=== PATIENT | female | born 1950 | race American Indian/Alaskan Native ===

== ENCOUNTER 2017-07-09 21:55 | Inpatient (IN) | payer MEDICARE ==
--- NOTE | 2017-07-09 22:57 | Emergency Department Report ---
ED General Adult HPI - General Chief complaint: Abdominal Pain Stated complaint: CP,ABD PAIN Time Seen by Provider: 07/09/17 22:43 Source: patient Mode of arrival: Ambulatory Limitations: No Limitations - History of Present Illness Initial comments: Pt is a 67-year-old female past history of hypertension diabetes who presents with chest pain. Patient states the chest pain occurred a couple of hours ago. Patient states that she was eating and then afterwards she had some chest pain. She states that the chest pain was severe listening about 8/10 and that she felt nauseous with this pain. Patient was diaphoretic 2 and the pain was constant. Patient states that she's never had this type of pain before it is a pressure type of pain . It radiated to her right shoulder. Nothing makes the pain better or worse. Patient was brought on by EMS. - Related Data Allergies Allergy/AdvReac Type Severity Reaction Status Date / Time aspirin Allergy Unknown Verified 07/09/17 22:31 ED Review of Systems ROS: Stated complaint: CP,ABD PAIN Other details as noted in HPI Constitutional: denies: chills, fever Eyes: denies: eye pain, eye discharge, vision change ENT: denies: ear pain, throat pain Respiratory: denies: cough, shortness of breath, wheezing Cardiovascular: chest pain Endocrine: no symptoms reported Gastrointestinal: abdominal pain, nausea Genitourinary: denies: urgency, dysuria, discharge Musculoskeletal: denies: back pain, joint swelling, arthralgia Skin: denies: rash, lesions Neurological: denies: headache, weakness, paresthesias Psychiatric: denies: anxiety, depression Hematological/Lymphatic: denies: easy bleeding, easy bruising ED Past Medical Hx - Past Medical History Previous Medical History?: Yes Hx Hypertension: Yes Hx Diabetes: Yes Additional medical history: h/o pancreatitis, chronic back pain - Surgical History Past Surgical History?: Yes Hx Cholecystectomy: Yes - Social History Smoking Status: Never Smoker Substance Use Type: None ED Physical Exam - General Limitations: No Limitations General appearance: alert, in no apparent distress - Head Head exam: Present: atraumatic, normocephalic - Eye Eye exam: Present: normal appearance - ENT ENT exam: Present: mucous membranes moist - Neck Neck exam: Present: normal inspection - Respiratory Respiratory exam: Present: normal lung sounds bilaterally. Absent: respiratory distress - Cardiovascular Cardiovascular Exam: Present: regular rate, normal rhythm. Absent: systolic murmur, diastolic murmur, rubs, gallop - GI/Abdominal GI/Abdominal exam: Present: soft, normal bowel sounds - Extremities Exam Extremities exam: Present: normal inspection - Back Exam Back exam: Present: normal inspection - Neurological Exam Neurological exam: Present: alert, oriented X3 - Psychiatric Psychiatric exam: Present: normal affect, normal mood - Skin Skin exam: Present: warm, dry, intact, normal color. Absent: rash ED Course Vital Signs 07/09/17 07/09/17 07/09/17 22:27 22:30 22:31 Temperature 97.9 F Pulse Rate 56 L Respiratory 18 Rate Blood Pressure 186/70 O2 Sat by Pulse 96 96 100 Oximetry 07/09/17 07/09/17 07/09/17 22:46 23:00 23:16 Temperature Pulse Rate 53 L 53 L 54 L Respiratory 12 15 19 Rate Blood Pressure O2 Sat by Pulse 99 98 98 Oximetry 07/09/17 07/09/17 07/10/17 23:30 23:46 00:00 Temperature Pulse Rate 53 L 54 L 53 L Respiratory 15 12 13 Rate Blood Pressure O2 Sat by Pulse 97 99 98 Oximetry 07/10/17 07/10/17 07/10/17 00:16 00:30 00:46 Temperature Pulse Rate 52 L 54 L 52 L Respiratory 12 13 19 Rate Blood Pressure O2 Sat by Pulse 99 100 98 Oximetry 07/10/17 07/10/17 07/10/17 01:25 01:30 01:46 Temperature Pulse Rate 71 54 L 45 L Respiratory 17 18 17 Rate Blood Pressure 175/78 175/78 O2 Sat by Pulse Oximetry 07/10/17 07/10/17 07/10/17 02:00 02:16 02:30 Temperature Pulse Rate 55 L 50 L 47 L Respiratory 14 13 18 Rate Blood Pressure 188/70 188/70 188/70 O2 Sat by Pulse Oximetry 07/10/17 07/10/17 07/10/17 02:46 03:00 03:16 Temperature Pulse Rate 56 L 53 L 47 L Respiratory 18 11 L 15 Rate Blood Pressure 188/70 164/130 164/130 O2 Sat by Pulse 95 95 94 Oximetry 07/10/17 07/10/17 07/10/17 03:30 03:46 04:10 Temperature Pulse Rate 51 L 49 L 58 L Respiratory 11 L 16 15 Rate Blood Pressure 164/130 164/130 164/130 O2 Sat by Pulse 97 96 95 Oximetry 07/10/17 07/10/17 04:16 04:20 Temperature Pulse Rate 49 L Respiratory 16 18 Rate Blood Pressure 156/57 O2 Sat by Pulse 92 Oximetry ED Medical Decision Making - Lab Data Result diagrams: 07/09/17 23:05 07/09/17 23:05 Lab Results 07/09/17 07/09/17 07/10/17 Range/Units 23:05 23:05 00:30 WBC 6.8 (4.5-11.0) K/mm3 RBC 5.33 H (3.65-5.03) M/mm3 Hgb 15.6 H (10.1-14.3) gm/dl Hct 48.6 H (30.3-42.9) % MCV 91 (79-97) fl MCH 29 (28-32) pg MCHC 32 (30-34) % RDW 14.9 (13.2-15.2) % Plt Count 212 (140-440) K/mm3 Lymph % (Auto) 29.5 (13.4-35.0) % [place] % (Auto) 10.5 H (0.0-7.3) % Eos % (Auto) 2.1 (0.0-4.3) % Baso % (Auto) 0.5 (0.0-1.8) % Lymph # 2.0 (1.2-5.4) K/mm3 [place] # 0.7 (0.0-0.8) K/mm3 Eos # 0.1 (0.0-0.4) K/mm3 Baso # 0.0 (0.0-0.1) K/mm3 Seg Neutrophils % 57.4 (40.0-70.0) % Seg Neutrophils # 3.9 (1.8-7.7) K/mm3 Sodium 140 (137-145) mmol/L Potassium 4.1 (3.6-5.0) mmol/L Chloride 102.0 (98-107) mmol/L Carbon Dioxide 20 L (22-30) mmol/L Anion Gap 22 mmol/L BUN 14 (7-17) mg/dL Creatinine 1.0 (0.7-1.2) mg/dL Estimated GFR > 60 ml/min BUN/Creatinine Ratio 14 % Glucose 163 H (65-100) mg/dL Calcium 9.5 (8.4-10.2) mg/dL Total Bilirubin 0.40 (0.1-1.2) mg/dL AST 75 H (5-40) units/L ALT 56 (7-56) units/L Alkaline Phosphatase 105 (35-129) units/L Troponin T < 0.010 < 0.010 (0.00-0.029) ng/mL NT-Pro-B Natriuret Pep (0-900) pg/mL Total Protein 8.1 (6.3-8.2) g/dL Albumin 3.9 (3.9-5) g/dL Albumin/Globulin Ratio 0.9 % Lipase 47 (13-60) units/L Urine Color (Yellow) Urine Turbidity (Clear) Urine pH (5.0-7.0) Ur Specific [place] (1.003-1.030) Urine Protein (Negative) mg/dL Urine Glucose (UA) (Negative) mg/dL Urine Ketones (Negative) mg/dL Urine Blood (Negative) Urine Nitrite (Negative) Urine Bilirubin (Negative) Urine Urobilinogen (<2.0) mg/dL Ur Leukocyte Esterase (Negative) Urine WBC (Auto) (0.0-6.0) /HPF Urine RBC (Auto) (0.0-6.0) /HPF U Epithel Cells (Auto) (0-13.0) /HPF Urine Mucus /HPF 07/10/17 07/10/17 Range/Units 00:30 03:18 WBC (4.5-11.0) K/mm3 RBC (3.65-5.03) M/mm3 Hgb (10.1-14.3) gm/dl Hct (30.3-42.9) % MCV (79-97) fl MCH (28-32) pg MCHC (30-34) % RDW (13.2-15.2) % Plt Count (140-440) K/mm3 Lymph % (Auto) (13.4-35.0) % [place] % (Auto) (0.0-7.3) % Eos % (Auto) (0.0-4.3) % Baso % (Auto) (0.0-1.8) % Lymph # (1.2-5.4) K/mm3 [place] # (0.0-0.8) K/mm3 Eos # (0.0-0.4) K/mm3 Baso # (0.0-0.1) K/mm3 Seg Neutrophils % (40.0-70.0) % Seg Neutrophils # (1.8-7.7) K/mm3 Sodium (137-145) mmol/L Potassium (3.6-5.0) mmol/L Chloride (98-107) mmol/L Carbon Dioxide (22-30) mmol/L Anion Gap mmol/L BUN (7-17) mg/dL Creatinine (0.7-1.2) mg/dL Estimated GFR ml/min BUN/Creatinine Ratio % Glucose (65-100) mg/dL Calcium (8.4-10.2) mg/dL Total Bilirubin (0.1-1.2) mg/dL AST (5-40) units/L ALT (7-56) units/L Alkaline Phosphatase (35-129) units/L Troponin T (0.00-0.029) ng/mL NT-Pro-B Natriuret Pep 44.77 (0-900) pg/mL Total Protein (6.3-8.2) g/dL Albumin (3.9-5) g/dL Albumin/Globulin Ratio % Lipase (13-60) units/L Urine Color Yellow (Yellow) Urine Turbidity Clear (Clear) Urine pH 5.0 (5.0-7.0) Ur Specific [place] 1.024 (1.003-1.030) Urine Protein <15 mg/dl (Negative) mg/dL Urine Glucose (UA) >=500 (Negative) mg/dL Urine Ketones Neg (Negative) mg/dL Urine Blood Sm (Negative) Urine Nitrite Neg (Negative) Urine Bilirubin Neg (Negative) Urine Urobilinogen < 2.0 (<2.0) mg/dL Ur Leukocyte Esterase Neg (Negative) Urine WBC (Auto) 1.0 (0.0-6.0) /HPF Urine RBC (Auto) 1.0 (0.0-6.0) /HPF U Epithel Cells (Auto) < 1.0 (0-13.0) /HPF Urine Mucus Few /HPF - EKG Data -: EKG Interpreted by Me - EKG Data 07/09/17 22:57 EKG shows normal sinus rhythm no ST segment elevation or T-wave inversion. - Radiology Data Radiology results: image reviewed Chest x-ray: Shows mild cardiomegaly - Medical Decision Making Chief medical diagnosis: Non-STEMI Differential medical diagnosis: Pneumonia, pneumothorax, GERD, arrhythmia, metabolic abnormality I will get CBC, CMP, EKG, troponin, chest x-ray, IV pain medication Patient will be admitted to the hospital service due to patient having high risk factors for acute coronary syndrome. Discussed plan with patient. She agrees with plan. Critical care attestation.: If time is entered above; I have spent that time in minutes in the direct care of this critically ill patient, excluding procedure time. ED Disposition Clinical Impression: Acute coronary syndrome Chest pain Qualifiers: Chest pain type: other chest pain Qualified Code(s): R07.89 - Other chest pain ; R07.8 - Other chest pain Disposition: OP ADMIT IP TO THIS HOSP Is pt being admited?: Yes Does the pt Need Aspirin: No Condition: Stable Instructions: Abdominal Pain (ED), Chest Pain (ED) Referrals: PRIMARY CARE, [Primary Care Provider] - 3-5 Days
[2017-07-09] MEDS ORDERED: MORPHINE IV ONE (22:58)
[2017-07-09 23:40] LABS: Basophils % (Auto) 0.5 % (0.0-1.8); Eosinophils % (Auto) 2.1 % (0.0-4.3); Hematocrit 48.6 % (30.3-42.9); Hemoglobin 15.6 gm/dl (10.1-14.3); Mean Corpuscular HGB Conc 32 % (30-34); Mean Corpuscular Hemoglobin 29 pg (28-32); Mean Corpuscular Volume 91 fl (79-97); Platelet Count 212 K/mm3 (140-440); Red Blood Count 5.33 M/mm3 (3.65-5.03); Red Cell Distribution Width 14.9 % (13.2-15.2); White Blood Count 6.8 K/mm3 (4.5-11.0)
[2017-07-09 23:48] LABS: Albumin 3.9 g/dL (3.9-5); Albumin/Globulin Ratio 0.9 %; Alkaline Phosphatase 105 units/L (35-129); Anion Gap 22 mmol/L; BUN/Creatinine Ratio 14; Blood Urea Nitrogen 14 mg/dL (7-17); Calcium 9.5 mg/dL (8.4-10.2); Carbon Dioxide 20 mmol/L (22-30); Glucose 163 mg/dL (65-100); Lipase 47 units/L (13-60); Potassium 4.1 mmol/L (3.6-5.0); Sodium 140 mmol/L (137-145); Total Protein 8.1 g/dL (6.3-8.2)
[2017-07-10 00:08] LABS: Alanine Aminotransferase 56 units/L (7-56)
[2017-07-10] MEDS ORDERED: MORPHINE ONE (03:45)
[2017-07-10 03:50] LABS: Bilirubin,Urine NEG (Negative); Blood,Urine SM (Negative); Ketones,Urine NEG (Negative); Leukocyte Esterase,Urine NEG (Negative); Mucus,Urine FEW /HPF; Nitrite,Urine NEG (Negative); Protein,Urine <15 mg/dL mg/dL (Negative); Urobilinogen,Urine < 2.0 mg/dL (<2.0)
[2017-07-10] MEDS ORDERED: D50W (25GM) Syringe IV PRN (05:19)
[2017-07-10] MEDS ORDERED: DULCOLAX PR PRN (05:19)
[2017-07-10] MEDS ORDERED: MILK OF MAGNESIA PO PRN (05:19)
[2017-07-10] MEDS ORDERED: TYLENOL PO PRN (05:19)
[2017-07-10] MEDS ORDERED: SODIUM CHLORIDE FLUSH SYRINGE 10 ML IV PRN (05:19)
[2017-07-10] MEDS ORDERED: APRESOLINE IV PRN (05:24)
--- NOTE | 2017-07-10 05:24 | History and Physical Report ---
History of Present Illness Date of examination: 07/10/17 History of present illness: 67-year-old woman with a history of hypertension, diabetes, hypothyroidism comes emergency room with complaints of chest pain. Pain is in the epigastric area and in the anterior neck which started last night, described as a hurting sensation, constant, intensity 6/10, no radiation radiation and she cannot identify exacerbating or relieving factors. Admits to nausea and vomiting, shortness breath, diaphoresis Review Of Systems: Constitutional: no weight loss Ears, eyes, nose, mouth and throat: no nasal congestion, no nasal discharge, no sinus pressure, blurry vision, diplopia Neck: No neck pain or rigidity. Cardiovascular: no orthopnea, palpitations Respiratory: No cough Gastrointestinal: abdominal pain, hematochezia Genitourinary : no dysuria, frequency , hematuria Musculoskeletal: no muscle ache Integumentary: no rash, no pruritis Neurological: no parathesias, focal weakness Endocrine: no cold or heat intolerance, no polyuria or polydipsia Hematologic/Lymphatic: no easy bruising, no easy bleeding, no gland swelling Allergic/Immunologic: no urticaria, no angioedema. PAST MEDICAL HISTORY:hypertension, diabetes, hypothyroidism PAST SURGICAL HISTORY: Cholecystectomy, thyroidectomy FAMILY HISTORY::hypertension SOCIAL HISTORY: Denies alcohol, tobacco, drugs Medications and Allergies Allergies Allergy/AdvReac Type Severity Reaction Status Date / Time aspirin Allergy Unknown Verified 07/09/17 22:31 Home Medications Medication Instructions Recorded Confirmed Last Taken Type Amlodipine Besylate [Amlodipine 10 mg PO DAILY 07/10/17 07/10/17 07/09/17 History Besylate] Chlorthalidone [Chlorthalidone] 25 mg PO DAILY 07/10/17 07/10/17 07/09/17 History Dapagliflozin Propanediol [Farxiga] 10 mg PO DAILY 07/10/17 07/10/17 07/09/17 History Diclofenac EC 75 mg PO DAILY 07/10/17 07/10/17 07/06/17 History Insulin Aspart [NovoLOG Flexpen] 1 unit SQ AC 07/10/17 07/10/17 07/09/17 History Levothyroxine [Synthroid] 112 mcg PO QAM 07/10/17 07/10/17 07/09/17 History 112 mcg Metoprolol [Lopressor] 100 mg PO ONCE 07/10/17 07/10/17 07/09/17 History Oxycodone HCl/Acetaminophen 10 mg PO Q6HR PRN 07/10/17 07/10/17 07/09/17 History [Oxycodone-Acetaminophen 5-325] Rosuvastatin Calcium [Crestor] 20 mg PO DAILY 07/10/17 07/10/17 07/09/17 History Active Meds: Active Medications Acetaminophen (Tylenol) 650 mg PO Q4H PRN PRN Reason: Pain MILD(1-3)/Fever >100.5/ROBERSON Bisacodyl (Dulcolax) 10 mg [place] QDAY PRN PRN Reason: Constipation unrelieved by MOM Dextrose (D50w (25gm) Syringe) 50 ml IV PRN PRN PRN Reason: Hypoglycemia Enoxaparin Sodium (Lovenox) 40 mg SUB-Q QDAY BRENDA Insulin Aspart (Novolog) 0 units SUB-Q ACHS BRENDA PRN Reason: Protocol Magnesium Hydroxide (Milk Of Magnesia) 30 ml PO Q4H PRN PRN Reason: Constipation Morphine Sulfate (Morphine) 2 mg IV Q4H PRN PRN Reason: Pain, Moderate (4-6) Ondansetron HCl (Zofran) 4 mg IV Q8H PRN PRN Reason: N/V unrelieved by Reglan Sodium Chloride (Sodium Chloride Flush Syringe 10 Ml) 10 ml IV PRN PRN PRN Reason: LINE FLUSH Exam - Physical Exam Narrative exam: Gen. appearance: Patient lying in bed in no acute distress HEENT: Normocephalic/atraumatic, pupils equal round reactive to light, extra alkaline movement intact, no scleral icterus, no JVD or thyromegaly or nodule, neck is supple, mucous membrane moist, no erythema or exudate Heart: S1-S2, regular rate and rhythm Lungs: Clear to auscultation bilateral breathing comfortable Abdomen: Positive bowel sounds, nontender, nondistended, no organomegaly Extremities: No edema, cyanosis, clubbing Neuro:: Oriented 3 , cranial nerves II-12 intact, speech, motor intact Skin: No rash, nodules, warm dry - Constitutional Vitals: Temp Pulse Resp BP Pulse Ox 97.9 F 49 L 18 156/57 92 07/09/17 22:31 07/10/17 04:16 07/10/17 04:20 07/10/17 04:16 07/10/17 04:16 Results - Labs CBC & Chem 7: 07/11/17 03:22 07/11/17 03:22 Labs: Abnormal lab results 07/09/17 07/09/17 Range/Units 23:05 23:05 RBC 5.33 H (3.65-5.03) M/mm3 Hgb 15.6 H (10.1-14.3) gm/dl Hct 48.6 H (30.3-42.9) % [place] % (Auto) 10.5 H (0.0-7.3) % Carbon Dioxide 20 L (22-30) mmol/L Glucose 163 H (65-100) mg/dL AST 75 H (5-40) units/L - Imaging and Cardiology EKG: image reviewed Chest x-ray: image reviewed Assessment and Plan Assessment Hypertensive urgency Chest pain most likely secondary to #1 Diabetes Hypothyroidism Plan Admit to medicine Check cardiac enzymes, stress test Start IV hydralazine for blood pressure control, IV morphine Check fingersticks initiate insulin sliding scale Repeat CXR, Continue appropriate medications, DVT prophylaxis
[2017-07-10 06:42] LABS: White Blood Count 6.5 K/mm3 (4.5-11.0)
[2017-07-10 06:43] LABS: Basophils % (Auto) 0.9 % (0.0-1.8); Eosinophils % (Auto) 2.9 % (0.0-4.3); Hemoglobin 14.4 gm/dl (10.1-14.3); Mean Corpuscular HGB Conc 34 % (30-34); Mean Corpuscular Hemoglobin 30 pg (28-32); Mean Corpuscular Volume 91 fl (79-97); Platelet Count 198 K/mm3 (140-440); Red Blood Count 4.74 M/mm3 (3.65-5.03); Red Cell Distribution Width 15.1 % (13.2-15.2)
[2017-07-10 06:50] LABS: Anion Gap 32 mmol/L; BUN/Creatinine Ratio 15; Blood Urea Nitrogen 16 mg/dL (7-17); Calcium 9.9 mg/dL (8.4-10.2); Carbon Dioxide 14 mmol/L (22-30); Chloride 107.4 mmol/L (98-107); Glucose 183 mg/dL (65-100); Potassium 4.8 mmol/L (3.6-5.0); Sodium 149 mmol/L (137-145)
[2017-07-10] MEDS ORDERED: LEXISCAN IV ONE ×2 (08:03→08:04)
[2017-07-10] MEDS: NOVOLOG SUB-Q SCH ×4 (09:15→22:48)
--- NOTE | 2017-07-10 10:06 | XRay Report ---
AP CHEST: HISTORY: chest pain No comparison. Mild cardiomegaly and central pulmonary venous congestion. The lungs are clear. No evidence for pneumonia, CHF or pneumothorax. The bony structures are grossly intact. IMPRESSION: Mild cardiomegaly and pulmonary venous congestion but no CHF.
[2017-07-10 12:02] LABS: Creatine Kinase MB 1.8 ng/mL (0.0-4.0)
[2017-07-10] MEDS: LOVENOX SUB-Q SCH (12:02)
[2017-07-10 12:05] LABS: Creatine Kinase 148 units/L (30-135)
--- NOTE | 2017-07-10 12:28 | Event Note ---
Date: 07/10/17 Patient with chest pain, hypertensive urgency. I have seen and examined her. Hold metoprolol because of bradycardia. Stress test done report pending.
[2017-07-10] MEDS: ZOFRAN IV PRN ×2 (12:30→17:39)
[2017-07-10] MEDS: MORPHINE IV PRN ×2 (12:30→17:39)
[2017-07-10 12:40] LABS: BUN/Creatinine Ratio 18; Blood Urea Nitrogen 11 mg/dL (7-17); Calcium 8.8 mg/dL (8.4-10.2); Carbon Dioxide 22 mmol/L (22-30); Chloride 100.7 mmol/L (98-107); Glucose 125 mg/dL (65-100); Potassium 4.7 mmol/L (3.6-5.0); Sodium 139 mmol/L (137-145)
[2017-07-10 12:41] LABS: Anion Gap 21 mmol/L
[2017-07-10] MEDS ORDERED: NORVASC PO SCH (13:00)
--- NOTE | 2017-07-10 14:16 | Treadmill Report ---
REASON FOR STUDY: Chest pain. IMAGING PROTOCOL: Single isotope used. The patient received 10 mCi of Technetium 99m Tetrofosmin for resting image and 28 mCi of Technetium 99m Tetrofosmin for stress imaging. The imaging for the whole procedure was completed 30-90 minutes following the initial injection of Technetium 99m Tetrofosmin. The SPECT imaging in the 180 degree arc was performed in the right anterior oblique projection. Computerized reconstruction of the images was performed for analysis. IMAGING RESULTS: Normal cavity size from stress to rest. Normal distribution of radionuclide in the anterior, inferior, septal, and apical regions. Gated SPECT, EF 65% with no wall motion abnormalities. SUMMARY: 1. Negative Lexiscan EKG. 2. Normal rest and stress myocardial perfusion scan. No significant stress ischemia. No wall motion abnormality. Gated SPECT greater than 65%. JOB# [id number] LINDSAY/BENITA
[2017-07-10 16:08] LABS: Creatine Kinase MB 1.9 ng/mL (0.0-4.0)
[2017-07-10 16:10] LABS: Creatine Kinase 164 units/L (30-135)
[2017-07-11] MEDS: MORPHINE IV PRN ×2 (00:06→08:25)
[2017-07-11] MEDS: ZOFRAN IV PRN ×2 (00:09→08:26)
[2017-07-11 04:32] LABS: Basophils % (Auto) 0.3 % (0.0-1.8); Eosinophils % (Auto) 3.6 % (0.0-4.3); Hematocrit 42.5 % (30.3-42.9); Hemoglobin 14.1 gm/dl (10.1-14.3); Mean Corpuscular HGB Conc 33 % (30-34); Mean Corpuscular Hemoglobin 30 pg (28-32); Mean Corpuscular Volume 90 fl (79-97); Platelet Count 196 K/mm3 (140-440); Red Blood Count 4.71 M/mm3 (3.65-5.03); Red Cell Distribution Width 14.7 % (13.2-15.2); White Blood Count 6.3 K/mm3 (4.5-11.0)
[2017-07-11 04:37] LABS: Chloride 105.2 mmol/L (98-107); Potassium 4.2 mmol/L (3.6-5.0)
[2017-07-11] MEDS ORDERED: SYNTHROID PO SCH (06:00)
[2017-07-11] MEDS: THALITONE PO SCH ×2 (07:39→10:27)
[2017-07-11] MEDS: NOVOLOG SUB-Q SCH (08:24)
[2017-07-11] MEDS ORDERED: NON-FORMULARY (Dapagliflozin Propanediol [Farxiga] 10 MG) PO SCH (10:00)
[2017-07-11] MEDS ORDERED: NORVASC PO SCH (10:00)
[2017-07-11] MEDS ORDERED: NON-FORMULARY (Rosuvastatin Calcium [Crestor] 20 MG) PO SCH (10:00)
[2017-07-11] MEDS: LOVENOX SUB-Q SCH (10:27)
--- NOTE | 2017-07-11 10:41 | Discharge Summary ---
Providers - Providers Date of Admission: 07/10/17 05:19 Date of discharge: 07/11/17 Attending physician: SAHDI NEWTON Cardiology consult negative Lexiscan. Primary care physician: MEJIA BUTCHER MD Hospitalization Condition: Good Pertinent studies: Lexiscan unremarkable.m normal stress and myocardial perfusion scan both normal. No evidence of CHF. Hospital course: 67-year-old presented with hypertensive urgency and atypical chest pain. Workup for chest pain unremarkable. With negative test as above. Patient can follow with cardiology 5-7 days [facility]. Ejection fraction noted to be 65%. Chest pain resolved. Stable to go home. Patient also had acquired hypothyroidism and diabetes which are both stable. Discharge blood pressure 135 /78. Bradycardia resolved. Disposition: - TO HOME OR SELFCARE - Discharge Diagnoses (1) Hypertensive urgency, malignant Status: Acute (2) Chest pain Status: Acute Qualifiers: Chest pain type: other chest pain Ischemic chest pain type: I Qualified Code(s): R07.89 - Other chest pain; R07.8 - Other chest pain Core Measure Documentation - Palliative Care Palliative Care/ Comfort Measures: Not Applicable - Core Measures Any of the following diagnoses?: none Exam - Constitutional Vitals: Temp Pulse Resp BP Pulse Ox 98.1 F 54 L 18 134/47 94 07/11/17 04:27 07/11/17 04:27 07/11/17 08:25 07/11/17 04:27 07/11/17 04:27 General appearance: Present: no acute distress, well-nourished - EENT Eyes: Present: PERRL ENT: hearing intact, clear oral mucosa - Neck Neck: Present: supple, normal ROM - Respiratory Respiratory effort: normal Respiratory: bilateral: CTA - Cardiovascular Heart Sounds: Present: S1 & S2. Absent: rub, click - Extremities Extremities: pulses symmetrical, No edema Peripheral Pulses: within normal limits - Abdominal General gastrointestinal: Present: soft, non-tender, non-distended, normal bowel sounds Female genitourinary: Present: normal - Integumentary Integumentary: Present: clear, warm, dry - Musculoskeletal Musculoskeletal: gait normal, strength equal bilaterally - Psychiatric Psychiatric: appropriate mood/affect, intact judgment & insight - Neurologic Neurologic: CNII-XII intact, moves all extremities Plan Activity: no restrictions Weight Bearing Status: Full Weight Bearing Diet: low salt, diabetic Follow up with: PRIMARY CARE, [Primary Care Provider] - 3-5 Days Prescriptions: amLODIPine [Norvasc] 10 mg PO DAILY #30 tablet
--- NOTE | 2017-07-11 10:47 | Event Note ---
Date: 07/11/17 The computer malfunction and just cut off. Would not let me provide any more information on the current discharge summary. Wanted to know that I he'll patient's beta abram secondary to bradycardia and she can follow-up with [facility] primary care physician to find out when medications should be resumed. Amlodipine has worked well for her blood pressure this point.
[2017-07-11 11:48] VITALS: BP 146/69
== END 2017-07-11 13:20 | disposition home or self-care (01) | DRG 305 ==
LOC: ED 21:55 → 4A 07-10 05:19
PROVIDERS: ADMIT Internal Medicine; ATTEND Internal Medicine
DX: I16.0 Hypertensive urgency (principal); E11.9 Type 2 diabetes mellitus without complications; E03.9 Hypothyroidism, unspecified; R00.1 Bradycardia, unspecified; G89.29 Other chronic pain; M54.9 Dorsalgia, unspecified; Z90.49 Acquired absence of other specified parts of digestive tract; Z82.49 Family history of ischemic heart disease and other diseases of the circulatory system; Z79.4 Long term (current) use of insulin; Z79.899 Other long term (current) drug therapy
CPT/HCPCS: 36415; 71010; 78452; 80048; 80053; 81001; 82550; 82553; 82962; 83690; 83880; 84484; 85025; 93005; 93010; 93017; A9270-GY; A9502; J1650; J1815; J2270; J2405; J2785